=== PATIENT | male | born 1990 | race African-American/Black ===

== ENCOUNTER 2016-08-14 17:21 | Emergency (ER) | payer SELFPAY ==
[2016-08-14 17:30] VITALS: TEMP 98.7; BMI 28.8
[2016-08-14 18:14] VITALS: BP 152/78; PULSE 111
[2016-08-14 18:24] LABS: LEUKOCYTES/URINE NEG (NEGATIVE); NITRITE/URINE NEG (NEGATIVE); RBC/URINE 0-2 (0-2); URINE OCCULT BLOOD NEG (NEG/TRACE); WBC/URINE 0-2 (0-2)
== END 2016-08-14 18:15 | disposition left against medical advice (07) ==
LOC: ED 17:21
DX: R53.1 Weakness (principal); Z53.21 Procedure and treatment not carried out due to patient leaving prior to being seen by health care provider
CPT/HCPCS: 81001; 82962; 99281; 99283